=== PATIENT | female | born 1970 | race Two or more races ===

== ENCOUNTER → 2018-10-03 | Emergency (ER) | payer MEDICAID ==
[~2018-10-03] VITALS: Ht 157.5 cm; Wt 49.6 kg
[~2018-10-03] MED LIST: CYCL-1 PO; METH4TAB81 PO; ketorolac trometh inj. 60 MG/2 ML VIAL IM ONE; ketorolac trometh. 30mg/ml inj. IM ONE
[2018-10-03 10:17] VITALS: BP 141/86
== END | disposition home or self-care (01) ==
LOC: ER 10:14
DX: M54.2 Cervicalgia (principal); M25.511 Pain in right shoulder; G89.29 Other chronic pain; Z79.899 Other long term (current) drug therapy
CPT/HCPCS: 96372; 99283; J1885